=== PATIENT | male | born 1990 | race Two or more races ===

== ENCOUNTER 2020-07-28 02:14 | Emergency (ER) | payer SELFPAY ==
[~2020-07-28] VITALS: Ht 177.8 cm; Wt 81.6 kg
[2020-07-28] MEDS ORDERED: NIFEdipine 10 MG CAP PO ONE (04:00)
[2020-07-28 05:12] VITALS: BP 127/79
[2020-07-28] MEDS ORDERED: HYDROcodone-ACET 7.5/325MG TAB PO ONE (05:30)
== END 2020-07-28 05:45 ==
LOC: EDBD 02:14 → ER 02:21
DX: S09.90XA Unspecified injury of head, initial encounter (principal); S13.9XXA Sprain of joints and ligaments of unspecified parts of neck, initial encounter; S20.229A Contusion of unspecified back wall of thorax, initial encounter; V49.9XXA Car occupant (driver) (passenger) injured in unspecified traffic accident, initial encounter; Y93.89 Activity, other specified; Y92.89 Other specified places as the place of occurrence of the external cause; Y99.8 Other external cause status
CPT/HCPCS: 70450; 72125; 72131; 73030